=== PATIENT | male | born 1995 | race Caucasian/White ===

== ENCOUNTER 2019-05-21 18:08 | Emergency (ER) | payer SELFPAY ==
[2019-05-21 18:12] VITALS: BP 126/86; PULSE 92; RESP 17; TEMP 36.8; O2SAT 100; BMI 22.9
--- NOTE | 2019-05-21 18:21 | XRR_ITS ---
PROCEDURE INFORMATION: Exam: XR Right Hand Exam date and time: 05/21/2019 6:44 PM Age: 23 years old Clinical indication: Injury or trauma; Fall; Initial encounter; Blunt trauma (contusions or hematomas; Hand; Right; Additional info: Injury/fall, RT hand/wrist pain TECHNIQUE: Imaging protocol: XR Right hand. Views: Frontal, lateral, and oblique views. COMPARISON: No relevant prior studies available. FINDINGS: Bones/joints: Intra-articular fracture of the base of the 5th metacarpal extending from the lateral metaphysis into the central epiphyseal articular surface, there is approximately 1.3 mm posterior displacement of the distal segment and apex posterior angulation. Nondisplaced/minimally displaced fracture of the lateral metaphysis of the 4th metacarpal, likely also extending into the proximal dorsal articular surface. The radiocarpal, intercarpal and carpometacarpal alignment is unremarkable. Soft tissues: Moderate dorsal swelling. XR/XR hand RT min 3V* [id number] IMPRESSION: 1. Nondisplaced/minimally displaced fracture of the lateral metaphysis of the 4th metacarpal, likely also extending into the proximal dorsal articular surface. 2. Intra-articular fractures of the 4th and 5th metacarpals.
--- NOTE | 2019-05-21 18:21 | XRR_ITS ---
PROCEDURE INFORMATION: Exam: XR Right Wrist Exam date and time: 05/21/2019 6:44 PM Age: 23 years old Clinical indication: Injury or trauma; Fall; Initial encounter; Blunt trauma (contusions or hematomas; Wrist; Right; Additional info: Injury/fall, RT wrist/hand pain TECHNIQUE: Imaging protocol: XR Right wrist. Views: Frontal, lateral, and oblique views. COMPARISON: No relevant prior studies available. FINDINGS: Bones/joints: Intra-articular fracture of the base of the 5th metacarpal extending from the lateral metaphysis into the central epiphyseal articular surface, there is approximately 1.5 mm posterior displacement of the distal segment and mild anterior angulation (distal segment) on the lateral image. The radiocarpal, intercarpal and carpometacarpal alignment is unremarkable. Soft tissues: Moderate dorsal swelling. No ectopic gas or foreign body identified. XR/XR wrist RT min 3V* [id number] IMPRESSION: Intra-articular fracture 5th metacarpal.
--- NOTE | 2019-05-21 18:22 | ED_ITS ---
Entered by Queta Lee, acting as scribe for Malena Prabhakar MD HPI - Extremity Problem General: Chief complaint: Extremity Injury, Upper Stated complaint: right hand pain/fall Time Seen by Provider: 05/21/19 18:19 History of Present Illness: HPI Narrative: 23 yo male presents with right wrist injury. pt states that he fell about 4 hours ago and he has pain. Rates his pain a 7 out of 10. MD Complaint: extremity pain Onset (ago): hour(s) (4) Pain Consistency: constant Location: right and upper extremity Quality: sharp Relieving factors: nothing Exacerbating factors: nothing Associated symptoms: Deny chest pain, fever(s) or rash Review of Systems Const: Denies: fever, chills, body aches or change in appetite Eyes: Denies: blurry vision or eye discomfort ENMT: Denies: throat pain or dental pain Card: Denies: chest pain Resp: Denies: shortness of breath GI: Denies: abdominal pain, nausea, vomiting or diarrhea : Denies: painful urination Musc: Reports: joint pain; Denies: neck pain or back pain Skin/Breast: Denies: rash Neuro: Denies: headache Psych: Denies: depression Jose/Lymph: Denies: easy bruising All/Imm: Denies: hives PFSH ED PFSH: Statuses (acute, chronic, etc) shown below reflect problem list status as previously entered and may not be historically accurate Social History Smoking and tobacco status: current every day smoker Physical Exam Const: COMMON NORMALS: no apparent distress, oriented x3 and healthy appearing HENMT: COMMON NORMALS: normocephalic and head/scalp atraumatic HEAD & SCALP: normocephalic and atraumatic Eye: COMMON NORMALS: PERRL and EOMs intact bilaterally PUPIL: Yes PERRL Neck/C-Spine: COMMON NORMALS: full ROM and supple Chest: COMMONS NORMALS: inspection of chest normal and palpation of chest normal Resp: COMMON NORMALS: normal respiratory effort, no retractions, no use of accessory muscles and clear to auscultation bilaterally AUSCULTATION: clear to auscultation bilaterally Cardio: COMMON NORMALS: regular rate, regular rhythm and no murmurs RATE: regular rate RHYTHM: regular rhythm GI: COMMON NORMALS: normal to inspection, nondistended, normoactive bowel sounds, soft to palpation, non-tender and no masses PALPATION: Yes soft Extremity: COMMON NORMALS: normal to inspection and full ROM NARRATIVE EXTREMITY EXAM: tenderness over right lateral hand Neuro: COMMON NORMALS: oriented x3, moves all extremities and no focal motor deficits Psych: COMMON NORMALS: mental status grossly normal, thought process normal and cooperative THOUGHT PROCESS: normal thought process Skin: COMMON NORMALS: no rashes or lesions noted and no wounds GENERAL SKIN EXAM: no rashes or lesions noted Course Vital Signs: Vital signs: Vital Signs Temperature 98.3 F 05/21/19 18:35 Pulse Rate 85 05/21/19 18:35 Respiratory Rate 16 05/21/19 18:35 Blood Pressure 114/74 05/21/19 18:35 Pulse Oximetry 98 05/21/19 18:35 MDM - Extremity (Nontraumatic) MDM Narrative: Medical decision making narrative: Patient presents here with an fracture from a fall. Patient's x-ray here shows a hand fracture. Patient placed in a splint and is to follow-up with primary care doctor in 3 to 5 days return if worsening. Discharge Plan Discharge Patient Disposition: Home, Self-Care Clinical Impression: Boxer's fracture Qualifiers: Encounter type: initial encounter Fracture type: closed Qualified Code(s): S62.339A - Displaced fracture of neck of unspecified metacarpal bone, initial encounter for closed fracture Condition: Stable Prescriptions: [place] 5-325 mg tablet 1 tab PO Q6H PRN (Reason: pain) Qty: 14 RF: 0 No Action No Known Home Medications RF: 0 Discharge Orders: Discharge Order (Routine); Ordered 05/21/19 Ordered By: Malena Prabhakar Referrals: Destinee Swartz MD [Primary Care Provider] - Estella Klein MD [Physician] - 4-7 days Discharge Diet: Advance as tolerated Discharge Activity: Resume usual activity Patient Instructions: Boxer Fracture (ED) Coding Level of Care Code ED Accounting Representative for Chg Fwd Exam Problem Focused The documentation recorded by the Jesus goldstein Kialy, accurately reflects the service I personally performed and the decisions made by Vanna gann Korby, MD May 21, 2019 18:08
[2019-05-21 18:35] VITALS: BP 114/74; PULSE 85; RESP 16; TEMP 36.8; O2SAT 98
[2019-05-21] MEDS: HYDROcodone-acetaminophen 7.5-325 mg Tablet 1 TAB PO (19:00)
[2019-05-21 19:28] VITALS: BP 112/76; PULSE 80; RESP 16; TEMP 36.7; O2SAT 99
--- NOTE | 2019-05-23 09:32 | DCPLANNER ---
software engineering associate manager had message to schedule a follow up appointment for patient with ortho. software engineering associate manager called the ortho clinic, spoke with Jacey, gave clinic patients information. software engineering associate manager was told that patients information would be printed and reviewed. Clinic will call porter sample case and patient with appointment information.
== END 2019-05-21 19:29 | disposition home or self-care (01) ==
PROVIDERS: Emergency Provider Emergency Medicine; Family Provider Family Medicine; PCP Family Medicine
DX: S62.304A Unspecified fracture of fourth metacarpal bone, right hand, initial encounter for closed fracture (principal); S62.306A Unspecified fracture of fifth metacarpal bone, right hand, initial encounter for closed fracture; W19.XXXA Unspecified fall, initial encounter; F17.200 Nicotine dependence, unspecified, uncomplicated
CPT/HCPCS: 29125; 73110; 73130; 99281; 99283

== ENCOUNTER 2019-05-28 10:56 | Outpatient (CLI) | payer SELFPAY | END 2019-05-28 10:57 | disposition home or self-care (01) | LOC: SPT 10:57 | PROVIDERS: Family Provider Family Medicine; PCP Family Medicine; Visit Provider Orthopaedic Surgery | DX: Z46.89 Encounter for fitting and adjustment of other specified devices (principal) | CPT/HCPCS: L3807 ==

== ENCOUNTER 2019-05-29 10:40 | Day surgery (SDC) | payer SELFPAY ==
[2019-05-28 14:43] VITALS: BMI 23.6
[2019-05-29] VITALS (11 sets, daily range): BP systolic 127–169; BP diastolic 75–111; PULSE 74–90; RESP 18–25; TEMP 36.8–37.2; O2SAT 93–99
--- NOTE | 2019-05-29 | SCC_ITS ---
Procedure Done: Open?internal fixation right small finger metacarpal base fracture with plate and screws 23.2 seconds of fluoroscopic guidance, for a cumulative dose of 1.29 mGy, was provided to Dr. Koroma by the radiology department. C-arm images of the RIGHT finger were saved for the patient's permanent record. [facility]
--- NOTE | 2019-05-29 11:10 | ANES.PREANE2 ---
Pre-Anesthetic Assessment Pre-Anesthetic Assessment: Height/Weight: Height 1.78 m Weight 74.843 kg Temp Pulse Resp BP Pulse Ox 98.2 F 75 18 127/75 95 05/29/19 10:51 05/29/19 10:51 05/29/19 10:51 05/29/19 10:51 05/29/19 10:51 Preop Diagnosis: Closed, displaced fracture right small finger metacarpal Proposed Procedure: Operation Date: 05/29/19 12:00 Proposed Procedures p ORIF Rig[place] Fifth Metacarpal 26577 S62.316A(Right) - Valentino Koroma DO Last intake: Intake Last Liquid Date 05/28/19 Last Liquid Time 22:00 Last Solid Date 05/28/19 Last Solid Time 22:00 Social: Social History: Tobacco and No alcohol Exam: Pre-Anes Outpt Exam: alert, oriented x 3, clear to auscultation bilaterally and regular rate & rhythm Airway: Submandibular: WNL Cervical ROM: WNL MP: 1 Dentition: Other (teeth ok) History/ROS: No significant history except as noted Pulmonary: Pulmonary: None reported CV/HEM: CV/HEM: None reported : : None reported Hepatic: Hepatic: None reported GI: Comments: h/o pancreatitis Metabolic: Metabolic: None reported Musc/skel: Musc/skel: None reported Neuropsych: Neuropsych: None reported Anesthetic Plan: ASA status: 2 Anesthesia: Anesthesia Evaluation and General Risk of > 500 ml blood loss (7ml/kg in children): No PFSH Anesthesia PFSH: Medical History Fracture of metacarpal base of right hand, closed Fracture of metacarpal shaft, closed Social History Smoking and tobacco status: current every day smoker Data Anesthesia Cardiac Studies: No Data to Display
[2019-05-29] MEDS: sodium chloride 0.9% 1,000 ML 30 ML IV (11:15)
--- NOTE | 2019-05-29 12:56 | W.PM.OPSUD ---
Surgery/Procedure H&P Update DATE OF PROCEDURE: May 29, 2019 DATE H&P PERFORMED: 05/28/19 H&P UPDATE INFORMATION: I have reviewed H&P completed within last 30 days, I have examined patient prior to procedure, No changes to prior documentation and H&[place] in [facility] [place] date indicated PREOP DIAGNOSIS: Closed, displaced fracture right small finger metacarpal PRIMARY INDICATION FOR PROCEDURE: displaced intra-articular fracture PLANNED PROCEDURE: Operation Date: 05/29/19 12:00 Proposed Procedures p ORIF Rig Fifth Metacarpal 01724 S62.316A(Right) - Valentino Koroma DO Related Problem List Diagnoses (1) Fracture of metacarpal base of right hand, closed: Qualifiers: Encounter type: initial encounter Metacarpal bone: fifth Fracture alignment: displaced Qualified Code(s): S62.316A - Displaced fracture of base of fifth metacarpal bone, right hand, initial encounter for closed fracture
--- NOTE | 2019-05-29 12:58 | P.OP_ITS ---
Operative Report Date of procedure: May 29, 2019 Pre-op Diagnosis: Closed, displaced intra-articular fracture right small finger metacarpal ba Pre-op Diagnosis: Closed, displaced intra-articular fracture right small finger metacarpal base Post-op diagnosis: same Procedure Done: Open?internal fixation right small finger metacarpal base fracture with plate and screws Implants: L-shaped 6-hole plate and 5 screws 2 locking and 3 nonlocking Specimens removed/disposition: Not applicable Pathology: none sent Surgeon: Valentino Koroma Anesthesia: General Estimated blood loss (mL): 10 Tourniquet time (min): 55 Tourniquet time: 250 mmHg pressure Complications: No apparent complications Findings: Ndzul-[id number] fracture right small finger metacarpal base. Patient with known nondisplaced largely transverse fracture proximal shaft of the right ring finger metacarpal Condition: stable Disposition: PACU Brief History: 23-year-old white male who punched a wall approximately a week ago. He was seen in the emergency room initially no fractures were seen follow- up study shows transverse fracture of the shaft of the ring finger metacarpal that is nondisplaced and an intra-articular oblique fracture of the right small finger metacarpal base. Discussed nonoperative treatment of the ring finger fracture but operative treatment of the small finger fracture due to the displaced intra-articular nature of the fracture. Risk of surgery include are not limited to loss reduction potential pain at the carpal metacarpal articulati on. Hardware complication such as loosening failure fracture to heal nerve/blood vessel/injury blood clots, heart attack, stroke risk up to including . All questions answered patient agreeable to proceed with surgery. Procedure: 1.5 g of Zinacef Patient identified. Surgical site was signed. Surgical permit was signed. Patient received 1.5 g of Zinacef for surgical prophylaxis intravenously. He was taking the operating room. His placed supine on the operating room table. He was placed under general anesthesia without difficulty. A tourniquet was placed about the upper aspect of the right upper extremity. Right upper extremity is in sterilely prepped and draped usual fashion. A timeout was performed. The operative limb was exsanguinated using Esmarch bandage. The tourniquet was inflated to 250 mmHg pressure. Incision was made over the dorsum of the distal shaft of the right small finger metacarpal and coursed obliquely over the carpus of the left wrist. Full-thickness skin flaps were made. Crossing veins were coagulated electrocautery. We identified the underlying extensor tendons to the left small finger. They were retracted. Using a second knife we incised the periosteum over the small finger metacarpal. We expose the joint capsule over the carpometacarpal articulation of the right small finger. No loose bodies were noted within the joint. Soft tissue was removed from the fracture site at the base of the right small finger. With 5 pounds of traction placed through a sterile finger traps. The fracture fragment was manipulated and then pinned using a provisional K wire. An L-shaped plate and screws was then applied using cortical screws in the shaft and 2 locking screws at the base. The provisional K wire was removed. Fluoroscopic imaging was performed which showed satisfactory reduction of the fracture with no apparent complications from hardware insertion. The wound was irrigated with Betadine- containing saline solution and antibiotic containing saline solution. Closure was performed in layers with 4-0 nylon on skin. The incision was injected with 10 mL of a one-to-one mixture 1% lidocaine half percent bupivacaine without epinephrine. Antibiotic was applied followed by sterile dressings and an ulnar gutter plaster splint with an Mark overwrap. The tourniquet was deflated during application of dressings. The patient was aroused from general anesthesia. He was taken to recovery room. He tolerated surgery well. All counts are correct.
[2019-05-29] MEDS: cefUROXime 1,500 MG in sodium chloride 0.9% (plus) 50 ML 100 MG IV (13:05)
[2019-05-29] MEDS: ondansetron 2 mg/ML SDV 2 mL 4 MG IVP ×2 (13:05→15:09)
--- NOTE | 2019-05-29 14:08 | XR_ITS ---
WS: [id number] XR finger RT min 2V 21684 REASON FOR EXAM: OR PICS FINDINGS: The fracture of the base of the fifth metacarpal is seen in immobilized with a metal plate and 4 screws the alignment is satisfactory. XR/XR finger RT min 2V 10008 IMPRESSION: Satisfactory alignment internal fixation of a fracture of the base of the fifth metacarpal.
[2019-05-29] MEDS: neomycin-poly-bacitracin oint 28 gm 1 APPLIC TOPICAL (14:13)
[2019-05-29] MEDS: lidocaine 1% INJ 20 mL SUBCUT (14:14)
--- NOTE | 2019-05-29 14:26 | SUR.PHASEI ---
1425 PATIENT TO PACU AT THIS TIME. RR EVEN AND UNLABORED. PT NOTED TO BE RESTING WITH EYES CLOSED, NO DISTRESS NOTED. DRESSING INTACT TO RIGHT HAND, CDI. PULSE PRESENT.
[2019-05-29] MEDS: fentaNYL 50 mcg/mL INJ 2mL IVP (14:35)
--- NOTE | 2019-05-29 15:04 | SUR.PHASEI ---
1501 PATIENT TO OPS AT THIS TIME. RR EVEN AND UNLABORED. NO DISTRESS. DRESSING DRY AND INTACT TO RIGHT HAND, RIGHT RADIAL PULSE PRESENT AND STRONG.
[2019-05-29] MEDS: HYDROcodone-acetaminophen 5-325 mg Tablet 1 TAB PO (15:27)
== END 2019-05-29 16:01 | disposition home or self-care (01) ==
PROVIDERS: Family Provider Family Medicine; PCP Family Medicine; Visit Provider Orthopaedic Surgery
PROC: (CPT 26615; principal; 2019-05-29 12:00)
DX: S62.316A Displaced fracture of base of fifth metacarpal bone, right hand, initial encounter for closed fracture (principal); W22.8XXA Striking against or struck by other objects, initial encounter; F17.210 Nicotine dependence, cigarettes, uncomplicated
CPT/HCPCS: 26615; 12345; 73140; 76000; C1713; J0697; J1580; J2001; J2250; J2405; J2704; J3010; J3490; J7030

== ENCOUNTER → 2019-06-11 13:50 | Outpatient (BNVA) | payer SELFPAY | PROVIDERS: Family Provider Family Medicine; PCP Family Medicine; Visit Provider Orthopaedic Surgery | DX: Z48.89 Encounter for other specified surgical aftercare (principal); Z98.890 Other specified postprocedural states; S62.306A Unspecified fracture of fifth metacarpal bone, right hand, initial encounter for closed fracture; S62.304A Unspecified fracture of fourth metacarpal bone, right hand, initial encounter for closed fracture; X58.XXXA Exposure to other specified factors, initial encounter | CPT/HCPCS: 73130 ==

== ENCOUNTER 2019-06-26 00:43 | Emergency (ER) | payer SELFPAY ==
[2019-06-26 00:54] VITALS: BMI 23.6
[2019-06-26 00:58] VITALS: BP 145/91; PULSE 102; RESP 18; TEMP 37.6; O2SAT 96
--- NOTE | 2019-06-26 01:00 | W.ED.GENADLT ---
HPI - General Adult General: Chief complaint: General Medical Stated complaint: HEMORRHOID Time Seen by Provider: 06/26/19 00:57 Source: patient Mode of arrival: ambulatory Limitations: no limitations History of Present Illness: HPI narrative: Patient is a 23-year-old male who presents to ED today with complaints of a hemorrhoid over the past 2 to 3 days. Patient states he believes he has a history of hemorrhoids but they have always seem to go away on their own and have never been quite this painful. Patient denies history of constipation or straining with his stools. He states he normally has diarrhea due to chronic pancreatitis. He recently was taking pain medications for a hand fracture that required ORIF however is not taking these any longer. Denies blood in his stool. Relieving factors: none Exacerbating factors: other (bowel movements ) Associated symptoms: Reports no associated symptoms; Deny nausea or vomiting Treatments prior to arrival: none Review of Systems GI: Reports: diarrhea (chronic from his chronic pancreatitis ) and painful bowel movements; Denies: abdominal pain, nausea, vomiting, change in stool character, blood in stool, black tarry stool, mucus in stool, white/light colored stool or fatty stool PFS ED PFSH: Social History Smoking and tobacco status: current every day smoker Physical Exam Const: COMMON NORMALS: no apparent distress, average body habitus, oriented x3, no limitations, healthy appearing, alert and well nourished GI: COMMON NORMALS: normal to inspection, nondistended, normoactive bowel sounds, soft to palpation, non-tender, no hepatosplenomegaly and no masses PALPATION: Yes soft and Yes no hepatosplenomegaly RECTAL EXAM: Yes hemorrhoids (pt has one 1cm external non-thrombosed hemorrhoid to R anal verge) Neuro: COMMON NORMALS: oriented x3 SENSORIUM/ORIENTATION: Yes alert Course Vital Signs: Vital signs: Vital Signs Temperature 99.6 F 06/26/19 00:58 Pulse Rate 102 H 06/26/19 00:58 Respiratory Rate 18 06/26/19 00:58 Blood Pressure 145/91 06/26/19 00:58 Pulse Oximetry 96 06/26/19 00:58 Discharge Plan Discharge Patient Disposition: Home, Self-Care Clinical Impression: External hemorrhoid Condition: Stable Prescriptions: New Preparation H Maximum Strength 0.25-1 % cream 1 applic NC BID PRN (Reason: hemorrhoids) Qty: 26 RF: 0 Anusol-HC 25 mg suppository 25 mg NC Q12H 12 Days Qty: 24 RF: 0 No Action oxycodone-acetaminophen 5-325 mg tablet 1 tab PO Q4H PRN (Reason: Pain, Severe) Qty: 30 RF: 0 [place] 5-325 mg tablet 1 tab PO Q6H PRN (Reason: Pain, Moderate) Qty: 14 RF: 0 Discharge Orders: Discharge Order (Routine); Ordered 06/26/19 Ordered By: Isamar Malloy Referrals: Destinee Swartz MD [Primary Care Provider] - Activity Restrictions/Additional Instructions: Please followup with primary care if no relief over the next week. Discharge Date/Time: 06/26/19 01:08 Coding Level of Care Code ED Senior Systems Administrator for Last Turner
== END 2019-06-26 01:08 | disposition home or self-care (01) ==
LOC: ER 01:05
PROVIDERS: Emergency Provider Physician Assistant; Family Provider Family Medicine; PCP Family Medicine
DX: K64.4 Residual hemorrhoidal skin tags (principal); F17.200 Nicotine dependence, unspecified, uncomplicated
CPT/HCPCS: 12345; 99281; 99282

== ENCOUNTER 2019-10-16 09:25 | Observation (INO) | payer SELFPAY ==
[2019-10-16] VITALS (10 sets, daily range): BP systolic 125–152; BP diastolic 68–92; PULSE 55–78; RESP 16–18; TEMP 36.7; O2SAT 97–99; BMI 23.7
[2019-10-16 10:27] LABS: Add Urine Microscopic? NO
[2019-10-16 10:38] LABS: Urine Appearance Clear (CLEAR); Urine Color Straw (Yellow)
[2019-10-16 10:39] LABS: Bilirubin Urine Neg (NEGATIVE); Blood Urine Neg (Negative); Glucose Urine UA Norm (Normal); Ketones Urine Negative (Negative); Leukocyte Esterase Urine Negative (Negative); Nitrate Urine Negative (Negative); Protein Urine Neg (Negative); Specific Gravity, Urine 1.005 (1.005-1.030); Urobilinogen Urine Norm (Negative)
[2019-10-16 10:41] LABS: Basophils % 0.3 %; Eosinophils # 0.3 10^3/uL (0.0-0.8); Eosinophils % 2.1 %; Hematocrit 45.5 % (42.0-52.0); Lymphocytes # 1.8 10^3/uL (0.8-4.8); Lymphocytes % 14.7 %; Mean Corpuscular Hemoglobin 30.2 pg (28.0-34.0); Mean Corpuscular Volume 91.7 fL (80-94); Mean Platelet Volume 9.5 fL (7.4-10.4); Monocytes % 7.9 %; Neutrophils # 9.28 10^3/uL (1.8-7.7); Neutrophils % 74.8 %; Nucleated Red Blood Cells % 0 %; Platelet Count 355 10^3/cmm (130-400); Red Blood Count 4.96 10^6/uL (4.1-5.3); Red Cell Distribution Width 11.9 % (12.1-15.1); White Blood Count 12.4 10^3/uL (4.0-10.0)
--- NOTE | 2019-10-16 10:44 | W.ED.ABDPA2 ---
HPI - Abdominal Pain General: Chief Complaint: Abdominal Pain Stated Complaint: ABD PAIN, N/V Time Seen by Provider: 10/16/19 09:34 Source: patient Mode of arrival: ambulatory Limitations: no limitations History of Present Illness: HPI narrative: Patient is a 24-year-old male who presents to ED today with complaints of upper abdominal pain that began this morning around 4 AM. Patient tells me he has a history of pancreatitis that he has intermittently suffered from over the past 3 years. Patient tells me he will often times have mild flares that do not require medical attention however when pain gets this severe he often will seek medical evaluation. Patient reports chronic diarrhea-this is not changed recently. He admits to nausea and vomiting beginning this morning. Patient states his last severe flare was approximately 8 months ago. Patient has no other significant past medical history and currently takes no medications. He denies alcohol use. Patient's PCP is Dr. Swartz. Pertinent past history: other (chronic pancreatitis) Onset (ago): hour(s) Pain Consistency: constant Location: Epigastric Severity: severe Quality: sharp and burning Radiation: back Migration to: no migration Relieving factors: nothing Associated Symptoms: Reports diarrhea (chronic ), nausea and vomiting; Denies chills, coffee ground emesis, dysuria, fever(s), hematochezia, hematemesis and melena Review of Systems Const: Denies: fever(s), chills, body aches, fatigue or malaise Card: Denies: chest pain Resp: Denies: dyspnea GI: Reports: abdominal pain, nausea, vomiting and diarrhea (chronic ); Denies: hematemesis, coffee ground emesis, hematochezia, melena or white/light colored stool : Denies: flank pain, difficulty urinating, dysuria, urinary frequency, urinary urgency or urinary hesitancy Musc: Denies: neck pain, extremity pain, extremity swelling, joint pain or joint swelling Skin/Breast: Denies: rash Neuro: Denies: headache(s) PFS ED PFSH: Medical History (Updated 10/16/19 @ 14:36 by Jose Simms MD) Fracture of metacarpal base of right hand, closed Fracture of metacarpal shaft, closed GERD (gastroesophageal reflux disease) Pancreatitis, chronic Surgical History (Updated 10/16/19 @ 14:33 by Jose Simms MD) Hx laparoscopic cholecystectomy Status post open reduction and internal fixation (ORIF) of fracture Family History (Updated 10/16/19 @ 14:33 by Jose Simms MD) Other Cancer Social History (Updated 10/16/19 @ 14:33 by Jose Simms MD) Smoking and tobacco status: current every day smoker Alcohol intake: never Substance/Drug Use: current Substance/Drug use type: Marijuana Physical Exam Const: COMMON NORMALS: no acute distress, average body habitus, patient oriented x3, no limitations, healthy appearing, alert and well nourished Resp: COMMON NORMALS: normal respiratory effort and clear to auscultation bilaterally AUSCULTATION: clear to auscultation bilaterally Cardio: COMMON NORMALS: regular rate and regular rhythm RATE: regular rate RHYTHM: regular rhythm GI: COMMON NORMALS: Normal to inspection, nondistended, normoactive bowel sounds present, Soft to palpation, No hepatosplenomegaly present and no masses PALPATION: Yes Soft to palpation, Yes Tenderness to palpation present (GI) (upper abdomen ) and Yes No hepatosplenomegaly present Neuro: COMMON NORMALS: patient oriented x3 SENSORIUM/ORIENTATION: Yes alert Skin: COMMON NORMALS: no rashes or lesions noted GENERAL SKIN EXAM: no rashes or lesions noted Course Vital Signs: Vital signs: Vital Signs Temperature 98.0 F 10/16/19 10:01 Pulse Rate 75 10/16/19 12:55 Respiratory Rate 16 10/16/19 11:35 Blood Pressure 136/76 10/16/19 12:55 Pulse Oximetry 97 10/16/19 12:55 MDM - Abdominal Pain MDM Narrative: Medical decision making narrative: Patient has a normal lipase of 29. He has no evidence for pancreatitis on his CT scan. Patient noted to have elevated liver enzymes with a tbili of 1.5, AST at 663, ALT 370. Patient is status post cholecystectomy. Looking at patient's previous lab values he has intermittently had elevated LFTs over the past 2 to 3 years. Patient has had extensive evaluation including ultrasounds, CT scans, MRCP without any definitive diagnosis. He tells me at one point he was seeing a GI specialist in [place] however has not seen them in over a year. Patient tells me he does not feel comfortable going home at this point due to pain and feels if I were to discharge him home with pain medications he would unfortunately have to return. I have spoken to Dr. Eugene and he will speak to hospitalist about possible admission for pain control. Lab Data: Labs: Lab Results 10/16/19 10/16/19 10/16/19 Range/Units 10:18 10:18 10:22 WBC 12.4 H (4.0-10.0) 10^3/ uL RBC 4.96 (4.1-5.3) 10^6/u L Hgb 15.0 (11.7-16.6) g/dL Hct 45.5 (42.0-52.0) % MCV 91.7 (80-94) fL MCH 30.2 (28.0-34.0) pg MCHC 33.0 (30.0-36.0) g/dL RDW 11.9 L (12.1-15.1) % Plt Count 355 (130-400) 10^3/c mm MPV 9.5 (7.4-10.4) fL Neut % (Auto) 74.8 % Lymph % (Auto) 14.7 % [place] % (Auto) 7.9 % Eos % (Auto) 2.1 % Baso % (Auto) 0.3 % Neut # (Auto) 9.28 H (1.8-7.7) 10^3/u L Lymph # (Auto) 1.8 (0.8-4.8) 10^3/u L [place] # (Auto) 1.0 H (0.2-0.9) 10^3/u L Eos # (Auto) 0.3 (0.0-0.8) 10^3/u L Baso # (Auto) 0.0 (0.0-0.1) 10^3/u L Nucleated RBC % (a uto) 0 % Nucleated RBCs # 0.0 /100WBC Sodium (136-145) mmol/L Potassium (3.5-5.1) mmol/L Chloride (98-107) mmol/L Carbon Dioxide (22-29) mmol/L Anion Gap (5-19) BUN (6-20) mg/dL Creatinine (0.7-1.2) mg/dL GFR Calculation (90-130) mL/min Glucose (65-115) mg/dL Calculated Osmolal ity (285-295) mOsm/k g Calcium (8.5-10.5) mg/dL Total Bilirubin (0.15-1.2) mg/dL AST (0-40) U/L ALT (0-41) U/L Alkaline Phosphata se (40-130) IU/L Total Protein (6.6-8.7) g/dL Albumin (3.5-5.2) g/dL Globulin (1.3-4.6) g/dL Lipase (13-60) U/L Urine Color Straw (Yellow) Urine Appearance Clear (CLEAR) Urine pH 7.0 (5-7) Ur Specific Gravit y 1.005 (1.005-1.030) Urine Protein Neg (Negative) Urine Glucose (UA) Norm (Normal) Urine Ketones Negative (Negative) Urine Blood Neg (Negative) Urine Nitrate Negative (Negative) Urine Bilirubin Neg (NEGATIVE) Urine Urobilinogen Norm (Negative) mg/dL Ur Leukocyte Molly ase Negative (Negative) Urine Opiates Scre en Negative (Negative) ng/mL Ur Barbiturates Sc reen Negative (Negative) ng/mL Ur Phencyclidine S crn Negative (Negative) ng/mL Ur Amphetamines Sc reen Negative (Negative) ng/mL U Benzodiazepines Scrn Negative (Negative) ng/mL Urine Cocaine Scre en Negative (Negative) ng/mL U Marijuana (THC) Screen Positive H (Negative) ng/mL Hepatitis A IgM Ab (Nonreactive) Hep Bs Antigen (Nonreactive) Hep B Core IgM Ab (Nonreactive) Hepatitis C Antibo dy (Nonreactive) 10/16/19 10/16/19 Range/Units 10:22 10:22 WBC (4.0-10.0) 10^3/ uL RBC (4.1-5.3) 10^6/u L Hgb (11.7-16.6) g/dL Hct (42.0-52.0) % MCV (80-94) fL MCH (28.0-34.0) pg MCHC (30.0-36.0) g/dL RDW (12.1-15.1) % Plt Count (130-400) 10^3/c mm MPV (7.4-10.4) fL Neut % (Auto) % Lymph % (Auto) % [place] % (Auto) % Eos % (Auto) % Baso % (Auto) % Neut # (Auto) (1.8-7.7) 10^3/u L Lymph # (Auto) (0.8-4.8) 10^3/u L [place] # (Auto) (0.2-0.9) 10^3/u L Eos # (Auto) (0.0-0.8) 10^3/u L Baso # (Auto) (0.0-0.1) 10^3/u L Nucleated RBC % (a uto) % Nucleated RBCs # /100WBC Sodium 138 (136-145) mmol/L Potassium 4.2 (3.5-5.1) mmol/L Chloride 99 (98-107) mmol/L Carbon Dioxide 29 (22-29) mmol/L Anion Gap 14.2 (5-19) BUN 9 (6-20) mg/dL Creatinine 0.8 (0.7-1.2) mg/dL GFR Calculation 120.9 (90-130) mL/min Glucose 101 (65-115) mg/dL Calculated Osmolal ity 282 L (285-295) mOsm/k g Calcium 9.9 (8.5-10.5) mg/dL Total Bilirubin 1.5 H (0.15-1.2) mg/dL AST 663 H (0-40) U/L ALT 370 H (0-41) U/L Alkaline Phosphata se 71 (40-130) IU/L Total Protein 8.4 (6.6-8.7) g/dL Albumin 4.8 (3.5-5.2) g/dL Globulin 3.6 (1.3-4.6) g/dL Lipase 29 (13-60) U/L Urine Color (Yellow) Urine Appearance (CLEAR) Urine pH (5-7) Ur Specific Gravit y (1.005-1.030) Urine Protein (Negative) Urine Glucose (UA) (Normal) Urine Ketones (Negative) Urine Blood (Negative) Urine Nitrate (Negative) Urine Bilirubin (NEGATIVE) Urine Urobilinogen (Negative) mg/dL Ur Leukocyte Molly ase (Negative) Urine Opiates Scre en (Negative) ng/mL Ur Barbiturates Sc reen (Negative) ng/mL Ur Phencyclidine S crn (Negative) ng/mL Ur Amphetamines Sc reen (Negative) ng/mL U Benzodiazepines Scrn (Negative) ng/mL Urine Cocaine Scre en (Negative) ng/mL U Marijuana (THC) Screen (Negative) ng/mL Hepatitis A IgM Ab Non-reactive (Nonreactive) Hep Bs Antigen Non-reactive (Nonreactive) Hep B Core IgM Ab Non-reactive (Nonreactive) Hepatitis C Antibo dy Non-reactive (Nonreactive) Discharge Plan Discharge Patient Disposition: Admitted As Inpatient Clinical Impression: Intractable abdominal pain, Elevated LFTs Condition: Stable Coding Level of Care Code ED Group Insurance Special Agent for Last Fwd Exam Detailed
--- NOTE | 2019-10-16 10:49 | CT_ITS ---
WS: [id number] CT ABDOMEN AND PELVIS WITH CONTRAST HISTORY: upper abd pain; hx of pancreatitis TECHNIQUE: Imaging performed of the abdomen and pelvis with IV contrast. Single phase imaging of the abdomen. Coronal and sagittal reformats are submitted. All CT scans at [facility] use at least one of these dose optimization techniques: automated exposure control; mA and/or kV adjustment per patient size (includes targeted exams where dose is matched to clinical indication); or iterativ e reconstruction. IV CONTRAST: Omnipaque 300; 95 mL IV. Oral contrast: No DLP: 630.58 mGy.cm COMPARISON: 01/04/2019 Lower thorax: Lung bases are clear. Heart is normal size. No hiatal hernia. Liver/biliary system: Normal size with no intrahepatic dilatation. Gallbladder: Prior cholecystectomy. There is very mild central duct dilatation which may be physiolog ic and related to the cholecystectomy. There is also mild periportal edema. Pancreas: Normal. Spleen: Normal. Adrenal glands: Normal. Right kidney: Normal. Left kidney: Normal. Aorta: Normal. Lymphadenopathy: None. Free fluid: None. GI tract: Normal appendix. No GI tract obstruction. There is a small amount of increased fluid in the proximal and mid small bowel. No mucosal thickening or wall thickening. Abdominal wall: Unremarkable abdominal wall. No hernia. Pelvis: Normal. Bones: Unremarkable. CT/CT abdomen pelvis w con* [id number] IMPRESSION: 1. No evidence for acute pancreatitis. 2. Prior cholecystectomy. 3. Mild periportal edema and central bile duct dilatation. Slightly improved s cody 01/04/2019. 4. Normal appendix.
[2019-10-16 10:59] LABS: Alanine Aminotransferase 370 U/L (0-41); Albumin Level 4.8 g/dL (3.5-5.2); Alkaline Phosphatase 71 IU/L (40-130); Anion Gap 14.2 (5-19); Aspartate Amino Transferase 663 U/L (0-40); Blood Urea Nitrogen 9 mg/dL (6-20); Calcium 9.9 mg/dL (8.5-10.5); Carbon Dioxide 29 mmol/L (22-29); Chloride 99 mmol/L (98-107); Globulin 3.6 g/dL (1.3-4.6); Glomerular Filtration Rate 120.9 mL/min (90-130); Glucose 101 mg/dL (65-115); Lipase 29 U/L (13-60); Osmolality Calculated 282 mOsm/kg (285-295); Potassium 4.2 mmol/L (3.5-5.1); Sodium 138 mmol/L (136-145); Total Bilirubin 1.5 mg/dL (0.15-1.2); Total Protein 8.4 g/dL (6.6-8.7)
[2019-10-16] MEDS: ondansetron 2 mg/ML SDV 2 mL 4 MG IVP ×3 (11:32→22:15)
[2019-10-16] MEDS: morphine 4 mg/mL SDV 1 mL IVP (11:35)
--- NOTE | 2019-10-16 11:35 | PC.NURSE ---
pt in CT by stretcher with tech
[2019-10-16 12:05] LABS: Hepatitis A Antibody IgM Non-Reactive (Nonreactive); Hepatitis B Core IgM Non-Reactive (Nonreactive); Hepatitis B Surface Antigen Non-Reactive (Nonreactive); Hepatitis C Virus Antibody Non-Reactive (Nonreactive)
[2019-10-16] MEDS: HYDROmorphone 1 mg/mL INJ 1 mL 0.5 MG IVP (12:18)
[2019-10-16] MEDS: iohexol 300 mg/mL 100 mL Btl IV (12:38)
--- NOTE | 2019-10-16 14:29 | P.HP_ITS ---
Providers/Chief Complaint Primary Care Provider: Destinee Swartz MD Chief Complaint: ABD PAIN, N/V History of Present Illness Pura Escalante is a 24 year old male with abdominal discomfort. He reports he has a history of chronic pancreatitis and has abdominal discomfort about twice a week that is fairly minor. Every 6 months or so it will be [facility] and he will need admission. Last admission was here and he spent overnight getting IV fluids and nausea medicine. He reports he was evaluated in [place] several years ago and had an ERCP and had several outpatient visits with a bookmobile librarian. He was told he had chronic pancreatitis at that time. He is not for sure if small bowel biopsy was done to rule out celiac disease. He was put on pancreatic enzymes. He denies any fever. He reports no blood in his stool, black or tarry stools or hematemesis. He believes he vomited perhaps 4 times today. He has had a bowel movement today. He frequently has loose greasy stools. He has not been using his pancreatic enzyme lately. Review of Systems General: Reports: 10 or more systems reviewed and unremarkable except in HPI and below Const: Denies: fever(s) Eyes: Denies: change in vision ENMT: Denies: throat pain Card: Denies: chest pain Resp: Denies: dyspnea GI: Reports: abdominal pain, nausea, vomiting and GI cramping; Denies: hematemesis, coffee ground emesis, hematochezia or melena : Denies: flank pain Musc: Denies: neck pain Skin/Breast: Denies: rash Neuro: Denies: headache(s) Psych: Denies: anxiety Endo: Denies: polyuria Jose/Lymph: Denies: easy bruising All/Imm: Denies: urticaria Medications/Allergies Home Medications Medication Instructions Recorded Confirmed Last Taken Type No Known Home Medications 10/16/19 10/16/19 Unknown History Allergies Allergy/AdvReac Type Severity Reaction Status Date / Time No Known Allergies Allergy Verified 05/29/19 10:49 PFSH Acute PFSH: Medical History (Updated 10/16/19 @ 14:36 by Jose Simms MD) Fracture of metacarpal base of right hand, closed Fracture of metacarpal shaft, closed GERD (gastroesophageal reflux disease) Pancreatitis, chronic Surgical History (Updated 10/16/19 @ 14:33 by Jose Simms MD) Hx laparoscopic cholecystectomy Status post open reduction and internal fixation (ORIF) of fracture Family History (Updated 10/16/19 @ 14:33 by Jose Simms MD) Other Cancer Social History (Updated 10/16/19 @ 14:33 by Jose Simms MD) Smoking and tobacco status: current every day smoker Alcohol intake: never Substance/Drug Use: current Substance/Drug use type: Marijuana Supplemental PFSH Information: Vapes Vitals/I&O/Wt Last Vital Signs Temp 98.0 F 10/16/19 10:01 Pulse 75 10/16/19 12:55 Resp 16 10/16/19 11:35 BP 136/76 10/16/19 12:55 Pulse Ox 97 10/16/19 12:55 Weight last 48 hrs Weight 77.111 kg Physical Exam Narrative: EXAM NARRATIVE: General exam is no apparent distress, anxious appearing HEENT: Pupils equally round. Oropharynx clear. Neck is supple no lymphadenopathy or thyromegaly Cardiovascular regular rate and rhythm without murmur, no S3 or S4 Lungs clear no wheezing or crackles Abdomen is soft. Slight tenderness epigastric area. was deferred Extremities no cyanosis clubbing or edema, cap refill brisk Skin no rash Neuro no focal deficits Data : 10/16/19 10:22 10/16/19 10:22 Other data: Bilirubin 1.5, AST 663, ALT 370, lipase normal at 29, urinalysis negative. Hepatitis panel negative. Abdominal pelvic CT demonstrates no evidence of pancreatitis, prior c holecystectomy, mild periportal edema and central bile duct dilation A&P Assessment and plan (1) Vomiting: Cyclic. Observation status. Cannot rule out the THC use is contributing. IV fluids and rehydration N.p.o. Zofran as needed for nausea Status: Acute (2) Abdominal pain: Epigastric. At this point I think pancreatitis is less likely with no evidence of inflammation on CT and lipase is normal. Certainly could be related to peptic ulcer disease and Protonix will be initiated every 12 hours. He does use anti-inflammatories on occasion which I counseled against their use today. With elevated liver function tests will go ahead and check ESR, CRP, antimitochondrial antibody to look into possibility of autoimmune hepatitis although thought less likely. Liver function tests are better than they were checked on January 05. I discussed with the patient that this would need further outpatient evaluation by GI. He gives a history of chronically greasy stools, and abdominal pain and history of chronic pancreatitis causing the pain. This certainly could be the etiology as well and he certainly may have pancreatic insufficiency. When p.o. is started we will restart his pancreatic enzyme. Status: Acute (3) Transaminitis: See notations above Repeat LFTs in the morning Check TSH Status: Acute Additional A&P Information Mild leukocytosis. No evidence of active infection. Full code Low risk for DVT, no prophylaxis required Attestations Medical Necessity Statement*: Will need less than 2 midnight evaluation of cyclic vomiting. Time Spent in Patient Care: Greater than 35 minutes Coding Level of Care Code Acute Mechanical Systems Design Engineer for Chg Fwd Diagnoses Vomiting R11.10 Abdominal pain R10.9 Transaminitis R74.0
[2019-10-16 14:43] LABS: Amphetamines Screen Urine Negative (Negative); Barbiturates Screen Urine Negative (Negative); Benzodiazepines Screen Urine Negative (Negative); Cocaine Screen Urine Negative (Negative); Opiate Screen Urine Negative (Negative); PCP Screen Urine Negative (Negative); THC Screen Urine Positive (Negative)
[2019-10-16 15:11] LABS: Thyroid Stimulating Hormone 2.24 uIU/mL (0.27-4.20)
[2019-10-16 15:35] LABS: Erythrocyte Sedimentation Rate 11 mm/hr (0-10)
[2019-10-16] MEDS: pantoprazole 40 mg SDV IVP (16:08)
[2019-10-16] MEDS: HYDROmorphone 1 mg/mL INJ 1 mL IVP ×2 (16:09→20:35)
[2019-10-16] MEDS: sodium chloride 0.9% 1,000 ML 150 ML IV ×2 (16:10→23:35)
[2019-10-16] MEDS: nicotine 21 mg Patch 1 PATCH TRANSDERMA (22:44)
[2019-10-17] VITALS (7 sets, daily range): BP systolic 106–134; BP diastolic 62–86; PULSE 48–70; RESP 17–20; TEMP 36.6–36.9; O2SAT 95–99
[2019-10-17] MEDS: HYDROmorphone 1 mg/mL INJ 1 mL IVP ×2 (01:10→06:53)
[2019-10-17] MEDS: pantoprazole 40 mg SDV IVP (02:38)
[2019-10-17] MEDS: ondansetron 2 mg/ML SDV 2 mL 4 MG IVP ×2 (04:16→10:56)
[2019-10-17 05:02] LABS: Basophils % 0.6 %; Eosinophils # 0.4 10^3/uL (0.0-0.8); Eosinophils % 5.7 %; Hematocrit 41.9 % (42.0-52.0); Hemoglobin 13.6 g/dL (11.7-16.6); Lymphocytes # 1.8 10^3/uL (0.8-4.8); Mean Corpuscular HGB Conc 32.5 g/dL (30.0-36.0); Mean Corpuscular Hemoglobin 29.9 pg (28.0-34.0); Mean Corpuscular Volume 92.1 fL (80-94); Mean Platelet Volume 9.6 fL (7.4-10.4); Monocytes # 0.7 10^3/uL (0.2-0.9); Monocytes % 10.1 %; Neutrophils # 4.04 10^3/uL (1.8-7.7); Neutrophils % 57.5 %; Nucleated Red Blood Cells % 0 %; Platelet Count 313 10^3/cmm (130-400); Red Blood Count 4.55 10^6/uL (4.1-5.3); Red Cell Distribution Width 11.9 % (12.1-15.1)
[2019-10-17 05:39] LABS: Albumin Level 4.1 g/dL (3.5-5.2); Alkaline Phosphatase 82 IU/L (40-130); Anion Gap 13.8 (5-19); Blood Urea Nitrogen 6 mg/dL (6-20); Carbon Dioxide 27 mmol/L (22-29); Chloride 102 mmol/L (98-107); Glomerular Filtration Rate 120.9 mL/min (90-130); Glucose 95 mg/dL (65-115); Lipase 29 U/L (13-60); Osmolality Calculated 284 mOsm/kg (285-295); Potassium 3.8 mmol/L (3.5-5.1); Sodium 139 mmol/L (136-145); Total Bilirubin 3.5 mg/dL (0.15-1.2); Total Protein 7.1 g/dL (6.6-8.7)
[2019-10-17 05:54] LABS: Alanine Aminotransferase 996 U/L (0-41)
[2019-10-17 05:56] LABS: Aspartate Amino Transferase 872 U/L (0-40)
[2019-10-17] MEDS: sodium chloride 0.9% 1,000 ML 150 ML IV (06:15)
--- NOTE | 2019-10-17 09:19 | PC.CHAP ---
Pastoral Care Encounter/Spiritual Assessment Type of Contact [] Declined coal deliverer visit [] Patient/Family/Request visit [] Outpatient visit [] Follow-up visit [] Physician referral [] Code/Alert [x] Routine visit [] Staff referral [] Actively dying [] Patient sleeping [] Family support [] [] Out of room [] Palliative care [] [] Receiving care in room [] Pre-surgical visit [] Trauma [] Long length of stay [] ICU visit [] Other: Relational/Emotional Strength [] Patient feels connected with others/family/visitors/staff [] Distress [] Loneliness/isolation [] Abandonment Spirituality of Patient [] Person of Divine [] Attends Jew of their Divine [] Believes in Prayer [] Reads Bible or Shinto materials [] There are Spiritual issues to be addressed Embedded Firmware Developer Interventions [x] Prayer [x Active listening [x Non-anxious presence [x] Spiritual/emotional support [] Crisis/trauma care [] Spiritual counseling [] Bereavement support [] Provided bereavement packet [] Provided Bible/devotional materials [] Provided toy/stuffed animal, coloring book to patient or family member [] Provided Communion [] Anointing/[place] [] Salvation [x] Completed spiritual assessment [] Other: Impact on Illness or Injury [] Angry [] Fearful [] Anxious [] Often cries [] Exhaustion [] Unable to work [] Unable to attend congregation [] Unable to walk/stand [] Unable to read [] Unable to drive [] Unable to eat/drink [] Unable to sleep [] Unable to be with family [] Patient intubated [] Other: Summary Patient resting well Time spent with patient 5 min
--- NOTE | 2019-10-17 10:05 | PM.PN ---
Subjective Subjective: Interval history: Pura reports he has had quite a bit of nausea. Vomiting as well. Abdominal pain feels better currently. Medications: Reviewed: Yes Vitals/I&O/Wt Last Vital Signs Temp 98.0 F 10/17/19 08:00 Pulse 48 L 10/17/19 08:00 Resp 20 H 10/17/19 08:00 BP 126/86 10/17/19 08:00 Pulse Ox 99 10/17/19 08:00 10/16/19 10/17/19 10/17/19 22:59 06:59 14:59 Intake Total 2320 / 2320 1120 / 3440 Output Total 400 / 400 1725 / 2125 1200 / 1200 Balance 1920 / 1920 -605 / 1315 -1200 / -1200 Weight last 48 hrs Weight 77.111 kg Physical Exam Narrative: EXAM NARRATIVE: General exam is no apparent distress Cardiovascular regular rate and rhythm without murmur, no S3 or S4 Lungs clear no wheezing or crackles Abdomen is soft. Slight tenderness epigastric area. Extremities no cyanosis clubbing or edema, cap refill brisk Data : 10/17/19 04:25 10/17/19 04:25 A&P Assessment and plan (1) Vomiting: Cyclic. Still having significant issues. Cannot rule out that the THC use is contributing. Continue IV fluids Change to n.p.o. Zofran as needed for nausea Status: Acute (2) Abdominal pain: Epigastric. At this point I think pancreatitis is less likely with no evidence of inflammation on CT and lipase is normal. Certainly could be related to peptic ulcer disease and Protonix will be initiated every 12 hours. He does use anti-inflammatories on occasion which I counseled against their use today. With elevated liver function tests will go ahead and check ESR, CRP, antimitochondrial antibody to look into possibility of autoimmune hepatitis although thought less likely. Today the antimitochondrial antibody is pending but sedimentation rate is normal. Liver function tests are more elevated. Secondary to continued nausea, plan on repeating these tomorrow. Try to get old records from GI. He gives a history of chronically greasy stools, and abdominal pain and history of chronic pancreatitis causing the pain. This certainly could be the etiology as well and he certainly may have pancreatic insufficiency. When p.o. is started we will restart his pancreatic enzyme. Status: Acute (3) Transaminitis: Repeat liver function tests tomorrow. TSH was checked and normal. Status: Acute Additional A&P Information Mild leukocytosis. No evidence of active infection. Resolved Full code Low risk for DVT, no prophylaxis required Change to regular admission considering worsening liver function tests, persistent nausea. Attestations Medical Necessity Statement*: Needs continued hospitalization secondary to persistence of nausea inability to take p.o. Coding Level of Care Code Acute Squaring Machine Operator for Chg Fwd Diagnoses Vomiting R11.10 Abdominal pain R10.9 Transaminitis R74.0
[2019-10-17 10:37] LABS: C Reactive Protein 3.2 mg/L (0.0-4.9); Gamma Glutamyl Transferase 113 U/L (8-61)
--- NOTE | 2019-10-17 12:23 | PC.RESP ---
Smoking Cessation information sent to patient.
[2019-10-20 14:26] LABS: Anti-Double Strand DNA AB <1 IU/mL; Jo-1 Antibody <1.0 NEG AI (<1.0 NEG); SM/RNP Antibodies <1.0 NEG AI (<1.0 NEG); SS-B/LA IGG <1.0 NEG AI (<1.0 NEG); Scleroderma Ab(Scl-70) Ab <1.0 NEG AI (<1.0 NEG); Ss-A/Ro Igg <1.0 NEG AI (<1.0 NEG)
== END 2019-10-17 13:02 | disposition home or self-care (01) ==
LOC: ER 14:36 → MEDSURG 15:05
PROVIDERS: Admitting Provider Internal Medicine; Emergency Provider Physician Assistant; PCP Family Medicine; Visit Provider Internal Medicine
DX: R11.10 Vomiting, unspecified (principal); R10.13 Epigastric pain; R74.0 Nonspecific elevation of levels of transaminase and lactic acid dehydrogenase [LDH]; F17.210 Nicotine dependence, cigarettes, uncomplicated; Z53.29 Procedure and treatment not carried out because of patient's decision for other reasons
CPT/HCPCS: 12345; 36415; 74177; 80053; 80074; 80306; 81003; 82977; 83516; 83690; 84443; 85025; 85651; 86140; 86225; 86235; 96360; 96361; 96374; 96375; 96376; 99283; 99285; C9113; G0378; J1170; J2270; J2405; J7030; Q9967

== ENCOUNTER 2022-04-06 11:28 | Emergency (ER) | payer SELFPAY ==
--- NOTE | 2022-04-06 12:14 | ECG_ITS ---
[facility] Test Date: 2022-04-06 Pat Name: Pura Escalante Department: Room: Gender: Male Toe Trimmer: : 1995 Requested By: Pierce Ortega Order Number: [id number] Mckay MD: Randolph Gamboa M.D. Measurements Intervals [place] Rate: 80 P: 67 [place]: 110 QRS: 73 QRSD: 81 T: 47 QT: 338 QTc: 392 Interpretive Statements SINUS RHYTHM WITH MARKED SINUS ARRHYTHMIA WITH SHORT [place] INTERVAL Compared to ECG 06/13/2016 22:08:06 Short [place] interval now present Electronically Signed On 04-06-2022 21:11:39 WASH TUB MACHINE OPERATOR by Randolph Gamboa M.D. [id number]
[2022-04-06 12:22] VITALS: BP 147/91; PULSE 80; RESP 17; TEMP 36.8; O2SAT 98; BMI 25.1
[2022-04-06 13:52] VITALS: BP 121/84; PULSE 63; RESP 16; O2SAT 97
--- NOTE | 2022-04-06 17:41 | ED_ITS ---
HPI - Arrhythmia/Palpitations General: Chief Complaint: Arrhythmia/Palpitations Stated Complaint: irregular hr Time Seen by Provider: 04/06/22 17:13 History of Present Illness: Patient comes in with palpitations. States that off-and-on for the past 6 months he will occasionally have heart palpitations. Associates it with some chest pain at the same time. Denies any cardiac histor y. Denies any substance abuse except for marijuana which he uses daily. Patient denies any cold symptoms including no fever, cough, congestion, vomiting, or diarrhea. States he does have a history of chronic pancreatitis. Associated symptoms: Deny anxiety, nausea or vomiting Review of Systems Const: Denies: fever(s) or body aches Eyes: Denies: change in vision or blurry vision ENMT: Denies: throat pain or odynophagia Card: Reports: palpitations; Denies: chest pain Resp: Denies: dyspnea or productive cough GI: Denies: abdominal pain, nausea or vomiting : Denies: flank pain or dysuria Musc: Denies: neck pain or back pain Skin/Breast: Denies: rash or pruritus Neuro: Denies: headache(s) or numbness in extremities Psych: Denies: anxiety or change in appetite Endo: Denies: polyuria or excessive sweating PFSH ED PFSH: Medical History Fracture of metacarpal base of right hand, closed Fracture of metacarpal shaft, closed GERD (gastroesophageal reflux disease) Pancreatitis, chronic Surgical History Hx laparoscopic cholecystectomy Status post open reduction and internal fixation (ORIF) of fracture Family History Other Cancer Social History Smoking and tobacco status: current every day smoker (VAPE) Alcohol intake: never Physical Exam Const: COMMON NORMALS: no acute distress, patient oriented x3, healthy appear ing and alert HENMT: COMMON NORMALS: normocephalic and atraumatic HEAD & SCALP: normocephalic and atraumatic Eye: COMMON NORMALS: Equal, round and reactive pupils present and EOMs intact bilaterally PUPIL: Yes Equal, round and reactive pupils present Neck/C-Spine: COMMON NORMALS: full ROM and supple Resp: COMMON NORMALS: normal respiratory effort, No retractions and No use of accessory muscles Cardio: COMMON NORMALS: regular rate and regular rhythm RATE: regular rate RHYTHM: regular rhythm GI: COMMON NORMALS: Normal to inspection, nondistended, normoactive bowel sounds present, Soft to palpation and non-tender PALPATION: Yes Soft to palpation Back/Pelvis: COMMON NORMALS: thoracic and lumbar spine normal to inspection and no thoracic nor lumbar tenderness Extremity: COMMON NORMALS: normal to inspection and full ROM Neuro: COMMON NORMALS: patient oriented x3 SENSORIUM/ORIENTATION: Yes alert Psych: COMMON NORMALS: mental status grossly normal and cooperative Skin: COMMON NORMALS: no rashes or lesions noted and no wounds GENERAL SKIN EXAM: no rashes or lesions noted Course Vital Signs: Vital signs: Vital Signs Temperature 98.3 F 04/06/22 12:22 Pulse Rate 63 04/06/22 13:52 Respiratory Rate 16 04/06/22 13:52 Blood Pressure 121/84 04/06/22 13:52 Pulse Oximetry 97 04/06/22 13:52 Oxygen Delivery Me thod 04/06/22 13:52 MDM - Arrhythmia/Palpitations Medical Decision Making Patient comes in with palpitations. States that off-and-on for the past 6 months he will occasionally have heart palpitations. Associates it with some chest pain at the same time. Denies any cardiac history. Denies any substance abuse except for marijuana which he uses daily. Physical exam today is unremarkable. Will check EKG, labs, and reassess. On reassessment I talked to the patient about the test results. We will set him up with a primary care physician and a cardiac event monitor. Will discharge home at this time with precautions to return for worsening or changing symptoms. Lab Data 04/06/22 17:45 04/06/22 17:45 Laboratory Results WBC 14.7 10^3/uL (4.0-10.0) H 04/06/22 17:45 RBC 5.12 10^6/uL (4.1-5.3) 04/06/22 17:45 Hgb 15.4 g/dL (11.7-16.6) 04/06/22 17:45 Hct 45.9 % (42.0-52.0) 04/06/22 17:45 MCV 89.6 fl (80-94) 04/06/22 17:45 MCH 30.1 pg (28.0-34.0) 04/06/22 17:45 MCHC 33.6 g/dL (30.0-36.0) 04/06/22 17:45 RDW 11.6 % (12.1-15.1) L 04/06/22 17:45 Plt Count 362 10^3/cmm (130-400) 04/06/22 17:45 MPV 9.3 fL (7.4-10.4) 04/06/22 17:45 Neut % (Auto) 73.1 % 04/06/22 17:45 Lymph % (Auto) 18.6 % 04/06/22 17:45 [place] % (Auto) 5.5 % 04/06/22 17:45 Eos % (Auto) 2.2 % 04/06/22 17:45 Baso % (Auto) 0.3 % 04/06/22 17:45 Neut # (Auto) 10.73 10^3/uL (1.8-7.7) H 04/06/22 17:45 Lymph # (Auto) 2.7 10^3/uL (0.8-4.8) 04/06/22 17:45 [place] # (Auto) 0.8 10^3/uL (0.2-0.9) 04/06/22 17:45 Eos # (Auto) 0.3 10^3/uL (0.0-0.8) 04/06/22 17:45 Baso # (Auto) 0.0 10^3/uL (0.0-0.1) 04/06/22 17:45 Nucleated RBC % (auto) 0 % 04/06/22 17:45 Nucleated RBCs # 0.0 /100WBC 04/06/22 17:45 Sodium 136 mmol/L (136-145) 04/06/22 17:45 Potassium 3.9 mmol/L (3.5-5.1) 04/06/22 17:45 Chloride 99 mmol/L (98-107) 04/06/22 17:45 Carbon Dioxide 28 mmol/L (22-29) 04/06/22 17:45 Anion Gap 12.9 (5-19) 04/06/22 17:45 BUN 8 mg/dL (6-20) 04/06/22 17:45 Creatinine 0.8 mg/dL (0.7-1.2) 04/06/22 17:45 GFR Calculation 118.8 mL/min (90-130) 04/06/22 17:45 Glucose 89 mg/dL (65-115) 04/06/22 17:45 Calculated Osmolality 280 mOsm/kg (285-295) L 04/06/22 17:45 Calcium 10.0 mg/dL (8.5-10.5) 04/06/22 17:45 Total Bilirubin 0.8 mg/dL (0.15-1.2) 04/06/22 17:45 AST 13 U/L (0-40) 04/06/22 17:45 ALT 9 U/L (0-41) 04/06/22 17:45 Alkaline Phosphatase 67 U/L (40-130) 04/06/22 17:45 Troponin T Baseline 6 ng/L (0-15) 04/06/22 17:45 Total Protein 8.0 g/dL (6.6-8.7) 04/06/22 17:45 Albumin 4.5 g/dL (3.5-5.2) 04/06/22 17:45 Globulin 3.5 g/dL (1.3-4.6) 04/06/22 17:45 Discharge Plan Discharge Patient Disposition: Home Clinical Impression: Heart palpitations Condition: Stable Prescriptions: No Action MARIJUANA PO Discharge Orders: Discharge ED (Routine); Ordered 04/06/22 Ordered By: Jesus Espinoza Patient Instructions: Heart Palpitations Coding Level of Care Code ED Chemistry Technician for Chg Fwd Exam Comprehensive
[2022-04-06 17:55] LABS: Basophils % 0.3 %; Eosinophils # 0.3 10^3/uL (0.0-0.8); Eosinophils % 2.2 %; Hematocrit 45.9 % (42.0-52.0); Hemoglobin 15.4 g/dL (11.7-16.6); Lymphocytes # 2.7 10^3/uL (0.8-4.8); Lymphocytes % 18.6 %; Mean Corpuscular HGB Conc 33.6 g/dL (30.0-36.0); Mean Corpuscular Hemoglobin 30.1 pg (28.0-34.0); Mean Corpuscular Volume 89.6 fl (80-94); Mean Platelet Volume 9.3 fL (7.4-10.4); Monocytes # 0.8 10^3/uL (0.2-0.9); Monocytes % 5.5 %; Neutrophils # 10.73 10^3/uL (1.8-7.7); Neutrophils % 73.1 %; Nucleated Red Blood Cells % 0 %; Platelet Count 362 10^3/cmm (130-400); Red Blood Count 5.12 10^6/uL (4.1-5.3); Red Cell Distribution Width 11.6 % (12.1-15.1); White Blood Count 14.7 10^3/uL (4.0-10.0)
--- NOTE | 2022-04-06 17:56 | ECG_ITS ---
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 Measurements Intervals [place] Rate: 80 P: 44 TX: 130 QRS: 65 QRSD: 82 T: 55 QT: 366 QTc: 423 Interpretive Statements SINUS RHYTHM WITH SINUS ARRHYTHMIA Compared to ECG 04/06/2022 12:20:25 Short TX interval no longer present Electronically Signed On 04-06-2022 21:14:44 INFORMATICS SPEC by Randolph Gamboa M.D. [id number]
[2022-04-06 18:18] LABS: Troponin(5th) Baseline 6 ng/L (0-15)
[2022-04-06 18:20] LABS: Alanine Aminotransferase 9 U/L (0-41); Albumin Level 4.5 g/dL (3.5-5.2); Alkaline Phosphatase 67 U/L (40-130); Anion Gap 12.9 (5-19); Aspartate Amino Transferase 13 U/L (0-40); Blood Urea Nitrogen 8 mg/dL (6-20); Carbon Dioxide 28 mmol/L (22-29); Chloride 99 mmol/L (98-107); Globulin 3.5 g/dL (1.3-4.6); Glomerular Filtration Rate 118.8 mL/min (90-130); Glucose 89 mg/dL (65-115); Osmolality Calculated 280 mOsm/kg (285-295); Potassium 3.9 mmol/L (3.5-5.1); Sodium 136 mmol/L (136-145); Total Bilirubin 0.8 mg/dL (0.15-1.2)
[2022-04-06 19:08] VITALS: BP 135/87; PULSE 82; RESP 16; O2SAT 97
--- NOTE | 2022-04-07 12:44 | DCPLANNER ---
Addendum entered by Gladis Castle 04/19/22 14:38: Patient had a follow up appointment scheduled with heart care - patient did attend appointment Patient had a follow up appointment scheduled with Dr. Pedraza at [facility] - this appointment was rescheduled. Addendum entered by Gladis Castle 04/12/22 14:36: Patient has an appointment scheduled for Monday, April 19, 2021 at 10:00 at [facility]. clinic will call patient with appointment information. Addendum entered by Gladis Castle 04/07/22 13:02: Patient called case management director back. welfare centre manager scheduled a follow up appointment for patient for Tuesday, April 12, 2022 at 10:[address] Shah at [facility] to establish care. welfare centre manager gave patient the appointment information. welfare centre manager had message to schedule an event recorder for patient. welfare centre manager faxed signed order to [facility] for this to be scheduled. Clinic will call patient with appointment information. Original Note: welfare centre manager had message to schedule a follow up appointment at [facility] for patient for an event recorder. welfare centre manager also had a message to speak with patient about getting established with a primary care physician. case management director called phone number [phone] unable to speak with patient at this time, a voicemail was left for patient to return renal case manager phone call.
== END 2022-04-06 19:09 | disposition home or self-care (01) ==
PROVIDERS: Emergency Provider Emergency Medicine
DX: R00.2 Palpitations (principal); F17.290 Nicotine dependence, other tobacco product, uncomplicated
CPT/HCPCS: 80053; 84484; 85025; 93005; 99284

== ENCOUNTER → 2022-05-04 14:13 | Outpatient (BNVA) | payer SELFPAY | PROVIDERS: Visit Provider Family Medicine | DX: R00.2 Palpitations (principal) | CPT/HCPCS: 84443; 85025 ==

== ENCOUNTER 2023-11-20 23:05 | Emergency (ER) | payer SELFPAY ==
[2023-11-20 23:17] VITALS: BP 145/88; PULSE 76; RESP 16; TEMP 36.7; O2SAT 98; BMI 23.6
--- NOTE | 2023-11-20 23:25 | W.ED.MALEGU ---
HPI - Male Genitourinary General: Chief complaint: Urogenital-Male Stated complaint: trouble urinating Time Seen by Provider: 11/20/23 23:14 History of Present Illness: 28-year-old healthy male who presents the emergency room with dysuria. He says he has been having increased frequency and some burning with urination. Possibly some discharge. He is unsure whether has a urinary tract infection but also has some concern for a sexually transmitted infection. Having some pain in his pelvic area as well. This is relieved with urination. No fevers. No nausea or vomiting. Related Data Home Medications Medication Instructions Recorded Confirmed MARIJUANA PO 10/26/21 07/13/22 Previous Rx's Medication Instructions Recorded sertraline 50 mg tablet See Rx Instructions .Route 02/05/23 .COMPLEX #30 tabs doxycycline hyclate 100 mg capsule 100 mg PO BID 7 days #14 caps 11/21/23 Allergies Allergy/AdvReac Type Severity Reaction Status Date / Time No Known Allergies Allergy Verified 11/20/23 23:19 Review of Systems Narrative: Constitutional symptoms: Negative except as documented in HPI. Skin symptoms: Negative except as documented in HPI. Eye symptoms: Negative except as documented in HPI. ENMT symptoms: Negative except as documented in HPI. Respiratory symptoms: Negative except as documented in HPI. Cardiovascular symptoms: Negative except as documented in HPI. Gastrointestinal symptoms: Negative except as documented in HPI. Genitourinary symptoms: Negative except as documented in HPI. Musculoskeletal symptoms: Negative except as documented in HPI. Neurologic symptoms: Negative except as documented in HPI. Psychiatric symptoms: Negative except as documented in HPI. Endocrine symptoms: Negative except as documented in HPI. PFSH ED PFSH: Medical History Fracture of metacarpal base of right hand, closed Fracture of metacarpal shaft, closed GERD (gastroesophageal reflux disease) Pancreatitis, chronic Surgical History Hx laparoscopic cholecystectomy Status post open reduction and internal fixation (ORIF) of fracture Family History Other Cancer Social History Smoking and tobacco/nicotine status: current every day tobacco/nicotine user (VAPE) Alcohol intake: never Substance/Drug Use: current Physical Exam Narrative: EXAM NARRATIVE: General: Alert, no acute distress. Skin: warm and dry Head: Normocephalic Neck: Trachea midline Eye: Extraocular movements are intact. Ears, nose, mouth and throat: Oral mucosa moist Respiratory: Respirations are non-labored Musculoskeletal: Normal ROM Neurological: Alert and oriented, No focal neurological deficit observed. Psychiatric: Cooperative, appropriate mood & affect. Course Vital Signs: Vital signs: Vital Signs Temperature 98.0 F 11/20/23 23:17 Pulse Rate 76 11/20/23 23:17 Respiratory Rate 16 11/20/23 23:17 Blood Pressure 145/88 11/20/23 23:17 Pulse Oximetry 98 11/20/23 23:17 Oxygen Delivery Me thod Room Air 11/20/23 23:17 MDM - Male Medical Decision Making Urinalysis shows just a few whites no bacteria no nitrite positive no leukocyte esterase positive Assessment and plan: Empirically treating for UTI/STI. ?1000 mg p.o. azithromycin. IM Rocephin in the emergency room. - Discharged home - Discussed plan with patient. Answered any questions. - Evaluation and treatment of this problem were appropriate in the emergency setting. Lab Data Laboratory Results Urine Color Yellow (Yellow) 11/20/23 23:27 Urine Appearance Clear (CLEAR) 11/20/23 23:27 Urine pH 6.0 (5-7) 11/20/23 23:27 Ur Specific [place] 1.007 (1.005-1.030) 11/20/23 23:27 Urine Protein Negative (Negative) 11/20/23 23:27 Urine Glucose (UA) Negative (Normal) 11/20/23 23:27 Urine Ketones Negative (Negative) 11/20/23 23:27 Urine Blood Negative (Negative) 11/20/23 23:27 Urine Nitrate Negative (Negative) 11/20/23 23:27 Urine Bilirubin Negative (Negative) 11/20/23 23: Urine Urobilinogen 0.2 mg/dL (Negative) 11/20/23 23:27 Ur Leukocyte Esterase Negative (Negative) 11/20/23 23:27 Urine RBC 0-2 /hpf (0-2) 11/20/23 23:27 Urine WBC 0-5 /hpf (0-5) 11/20/23 23:27 Ur Squamous Epith Cells 0-5 /hpf (0-5) 11/20/23 23:27 Amorphous Sediment Not Reportable 11/20/23 23:27 Urine Bacteria None seen /hpf (NONE) 11/20/23 23:27 Hyaline Casts 0-4 /lpf H 11/20/23 23:27 No radiology studies performed this visit Discharge Plan Discharge Patient Disposition: Home Clinical Impression: Urinary tract infection Condition: Stable Prescriptions: New doxycycline hyclate 100 mg capsule 100 mg PO BID 7 Days Qty: 14 0RF No Action MARIJUANA PO sertraline 50 mg tablet See Rx Instructions .ROUTE .COMPLEX Qty: 30 0RF Dose Instruction: TAKE ONE TABLET BY MOUTH DAILY Rx Instructions: TAKE ONE TABLET BY MOUTH DAILY Discharge Orders: Discharge ED (Routine); Ordered 11/21/23 Ordered By: Sheila Frederick Discharge Diet: Usual diet Discharge Activity: Increase activity as tolerated Patient Instructions: Sexually Transmitted Diseases (ED), Male Condom Use (ED) Activity Restrictions/Additional Instructions: Thank you for choosing [facility] for your healthcare needs today. Please realize this is an emergency room and that we are providing you with a medical screening exam and this may not be complete and all inclusive of all the testing and or work up that you may need to determine your ailment or severity of your illness. You have been screened and evaluated and felt safe for discharge. Health conditions do change or evolve sometimes and as such it is important that you follow up with your Primary Doctor to be re checked, 3-5 days is a general good time frame for follow up. 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
[2023-11-20 23:33] LABS: Bilirubin Urine Negative (Negative); Blood Urine Negative (Negative); Glucose Urine UA Negative (Normal); Ketones Urine Negative (Negative); Leukocyte Esterase Urine Negative (Negative); Nitrate Urine Negative (Negative); Protein Urine Negative (Negative); Specific Gravity, Urine 1.007 (1.005-1.030); Urine Appearance Clear (CLEAR); Urine Color Yellow (Yellow); Urobilinogen Urine 0.2 mg/dL (Negative)
[2023-11-20 23:38] LABS: Bacteria Urine None Seen /hpf; Hyaline Casts Urine 0-4 /lpf; RBC Urine 0-2 /hpf (0-2); Squamous Epithelial Cell Urine 0-5 /hpf (0-5); WBC Urine 0-5 /hpf (0-5)
[2023-11-20] MEDS: azithromycin 250 mg Tablet 1000 MG PO (23:40)
[2023-11-20] MEDS: cefTRIAXone 1,000 MG in water for injection-sterile 2.1 ML 1 MG IM (23:42)
[2023-11-21 00:13] VITALS: BP 134/61; PULSE 75; RESP 18; O2SAT 98
[2023-11-22 11:06] LABS: Chlamydia Trachomatis RNA TMA NOT DETECTED (NOT DETECTED); Neisseria Gonorrhoeae RNA, TMA NOT DETECTED (NOT DETECTED)
== END 2023-11-21 00:14 | disposition home or self-care (01) ==
PROVIDERS: Physician Assistant; Emergency Provider Emergency Medicine
DX: N39.0 Urinary tract infection, site not specified (principal); F17.290 Nicotine dependence, other tobacco product, uncomplicated
CPT/HCPCS: 81001; 87491; 87591; 96372; 99284; J0696; Q0144

== ENCOUNTER → 2023-12-21 15:18 | Outpatient (BNVA) | payer SELFPAY | PROVIDERS: Visit Provider Registered Nurse Neonatal Intensive Care | DX: R39.9 Unspecified symptoms and signs involving the genitourinary system (principal); R42 Dizziness and giddiness | CPT/HCPCS: 81000; 87086 ==

== ENCOUNTER 2023-12-25 13:30 | Emergency (ER) | payer SELFPAY ==
[2023-12-25 13:31] VITALS: BP 145/101; PULSE 72; RESP 16; TEMP 36.8; O2SAT 99; BMI 20.6
[2023-12-25 14:06] LABS: Basophils % 0.3 %; Eosinophils # 0.1 10^3/uL (0.0-0.8); Eosinophils % 1.3 %; Hematocrit 47.6 % (37-53); Lymphocytes # 1.8 10^3/uL (0.8-4.8); Lymphocytes % 16.3 %; Mean Corpuscular HGB Conc 33.2 g/dL (30-55); Mean Corpuscular Hemoglobin 30.4 pg (27-33); Mean Corpuscular Volume 91.5 fl (82-101); Mean Platelet Volume 9.2 fL (7.4-10.4); Monocytes # 0.8 10^3/uL (0.2-0.9); Monocytes % 6.9 %; Neutrophils # 8.15 10^3/uL (1.8-7.7); Neutrophils % 74.8 %; Nucleated Red Blood Cells % 0 %; Platelet Count 358 10^3/cmm (157-399); Red Cell Distribution Width 11.9 % (12.1-15.1); White Blood Count 10.89 10^3/uL (3.29-11.43)
[2023-12-25 14:08] VITALS: BP 132/95; PULSE 73; RESP 16; O2SAT 99
[2023-12-25 14:23] LABS: Alanine Aminotransferase 15 U/L (0-41); Albumin Level 4.9 g/dL (3.5-5.2); Alkaline Phosphatase 64 U/L (40-130); Aspartate Amino Transferase 17 U/L (0-40); Blood Urea Nitrogen 9 mg/dL (6-20); Calcium 9.7 mg/dL (8.5-10.5); Carbon Dioxide 27 mmol/L (22-29); Chloride 101 mmol/L (98-107); Creatinine Clr Calc Pharmacy 138.3968; Globulin 3.3 g/dL (1.3-4.6); Glomerular Filtration Rate 116.9 mL/min (90-130); Glucose 77 mg/dL (65-115); Lipase 23 U/L (13-60); Osmolality Calculated 287 mOsm/kg (285-295); Sodium 140 mmol/L (136-145); Total Bilirubin 1.6 mg/dL (0.15-1.2); Total Protein 8.2 g/dL (6.6-8.7)
[2023-12-25 14:26] LABS: Bilirubin Urine Neg (Negative); Blood Urine Neg (Negative); Glucose Urine UA Norm (Normal); Ketones Urine Negative (Negative); Leukocyte Esterase Urine Negative (Negative); Nitrate Urine Negative (Negative); Protein Urine Neg (Negative); Specific Gravity, Urine 1.005 (1.005-1.030); Urine Appearance Clear (CLEAR); Urine Color Yellow (Yellow); Urobilinogen Urine Norm (Negative); pH Urine 6.5 (5-7)
[2023-12-25 14:29] LABS: Amphetamines Screen Urine Negative (Negative); Barbiturates Screen Urine Negative (Negative); Benzodiazepines Screen Urine Negative (Negative); Cocaine Screen Urine Negative (Negative); Opiate Screen Urine Negative (Negative); PCP Screen Urine Negative (Negative); THC Screen Urine Positive (Negative)
--- NOTE | 2023-12-25 14:39 | ED_ITS ---
HPI - Weakness 2 General: Chief complaint: Weakness Stated complaint: lightheaded, losing weight Time Seen by Provider: 12/25/23 13:52 History of Present Illness: 28-year-old man who presents emergency r oom with weakness, abdominal discomfort and says he just does not feel right. He said some numbness and tingling in his fingers. Generalized weakness. No focal deficits. No fevers. Mild nausea. No vomiting. Review of Systems 2 Narrative: Constitutional symptoms: Negative except as documented in HPI. Skin symptoms: Negative except as documented in HPI. Eye symptoms: Negative except as documented in HPI. ENMT symptoms: Negative except as documented in HPI. Respiratory symptoms: Negative except as documented in HPI. Cardiovascular symptoms: Negative except as documented in HPI. Gastrointestinal symptoms: Negative except as documented in HPI. Genitourinary symptoms: Negative except as documented in HPI. Musculoskeletal symptoms: Negative except as documented in HPI. Neurologic symptoms: Negative except as documented in HPI. Psychiatric symptoms: Negative except as documented in HPI. Endocrine symptoms: Negative except as documented in HPI. PFSH ED 2 PFSH: Medical History GERD (gastroesophageal reflux disease) Pancreatitis, chronic Fracture of metacarpal shaft, closed Fracture of metacarpal base of right hand, closed Surgical History Hx laparoscopic cholecystectomy Status post open reduction and internal fixation (ORIF) of fracture Family History Other Cancer Social History Smoking and tobacco/nicotine status: current every day tobacco/nicotine user Alcohol intake: never Substance/Drug Use: current Physical Exam 2 Narrative: EXAM NARRATIVE: General: Alert, no acute distress. Skin: Warm, dry. Head: Normocephalic, atraumatic. Neck: Supple, trachea midline. Eye: Extraocular movements are intact. Ears, nose, mouth and throat: mucosa moist. Cardiovascular: Regular, Normal peripheral perfusion. Respiratory: Lungs are clear to auscultation, respirations are non-labored, breath sounds are equal, Symmetrical chest wall expansion. Gastrointestinal: Soft, Nontender, Non distended Musculoskeletal: Normal ROM, no deformity. Neurological: Alert and oriented, No focal neurological deficit observed. Psychiatric: Cooperative, appropriate mood & affect. Course 2 Vital Signs: Vital signs: Vital Signs Temperature 98.2 F 12/25/23 13:31 Pulse Rate 66 12/25/23 14:49 Respiratory Rate 16 12/25/23 14:49 Blood Pressure 162/90 12/25/23 14:49 Pulse Oximetry 98 12/25/23 14:49 Oxygen Delivery Me thod Room Air 12/25/23 14:49 MDM - Weakness Medical Decision Making Medical decision making: Differential diagnosis for patient presenting with generalized weakness including but not limited to and based on the above HPI, review of systems and physical exam: Sepsis. Dehydration. Renal failure. Electrolyte abnormalities. Anemia. Congestive heart failure. Hypotension. Coronary syndrome. Hepatitis. Cirrhosis. Infections such as pneumonia, urinary tract infection, [place] illness, Cellulitis, Viral infections including influenza and Covid-19. Workup: labwork and lab/exam driven imaging ordered to evaluate, rule in and rule out above pathologies. Lab Review: Laboratory results were reviewed and interpreted by myself the emergency room physician. White count is not elevated normally 10.8. Hemoglobin normal at 15.8. BUN/creatinine are normal 8 and 0.8. Lipase is not elevated. Urinalysis is normal. Drug screen is negative except for marijuana. Respiratory panel is negative I reviewed the patient's medical record. Reexamination: Patient remained stable. No increased work of breathing. No altered mental status. No focal motor deficits. Assessment and plan: Weakness - Discharged home - Discussed plan with patient. Answered any questions. - Evaluation and treatment of this problem were appropriate in the emergency setting. Lab Data 12/25/23 13:59 12/25/23 13:59 Laboratory Results WBC 10.89 10^3/uL (3.29-11.43) 12/25/23 13:59 RBC 5.20 10^6/uL (3.85-5.65) 12/25/23 13:59 Hgb 15.80 g/dL (11.27-16.99) 12/25/23 13:59 Hct 47.6 % (37-53) 12/25/23 13:59 MCV 91.5 fl (82-101) 12/25/23 13:59 MCH 30.4 pg (27-33) 12/25/23 13:59 MCHC 33.2 g/dL (30-55) 12/25/23 13:59 RDW 11.9 % (12.1-15.1) L 12/25/23 13:59 Plt Count 358 10^3/cmm (157-399) 12/25/23 13:59 MPV 9.2 fL (7.4-10.4) 12/25/23 13:59 Neut % (Auto) 74.8 % 12/25/23 13:59 Lymph % (Auto) 16.3 % 12/25/23 13:59 [place] % (Auto) 6.9 % 12/25/23 13:59 Eos % (Auto) 1.3 % 12/25/23 13:59 Baso % (Auto) 0.3 % 12/25/23 13:59 Neut # (Auto) 8.15 10^3/uL (1.8-7.7) H 12/25/23 13:59 Lymph # (Auto) 1.8 10^3/uL (0.8-4.8) 12/25/23 13:59 [place] # (Auto) 0.8 10^3/uL (0.2-0.9) 12/25/23 13:59 Eos # (Auto) 0.1 10^3/uL (0.0-0.8) 12/25/23 13:59 Baso # (Auto) 0.0 10^3/uL (0.0-0.1) 12/25/23 13:59 Nucleated RBC % (auto) 0 % 12/25/23 13:59 Nucleated RBCs # 0.0 /100WBC 12/25/23 13:59 Sodium 140 mmol/L (136-145) 12/25/23 13:59 Potassium 4.0 mmol/L (3.5-5.1) 12/25/23 13:59 Chloride 101 mmol/L (98-107) 12/25/23 13:59 Carbon Dioxide 27 mmol/L (22-29) 12/25/23 13:59 Anion Gap 16.0 (5-19) 12/25/23 13:59 BUN 9 mg/dL (6-20) 12/25/23 13:59 Creatinine 0.8 mg/dL (0.7-1.2) 12/25/23 13:59 GFR Calculation 116.9 mL/min (90-130) 12/25/23 13:59 Glucose 77 mg/dL (65-115) 12/25/23 13:59 Calculated Osmolality 287 mOsm/kg (285-295) 12/25/23 13:59 Lactic Acid 2.0 mmol/L (0.5-2.2) 12/25/23 13:59 Calcium 9.7 mg/dL (8.5-10.5) 12/25/23 13:59 Total Bilirubin 1.6 mg/dL (0.15-1.2) H 12/25/23 13:59 AST 17 U/L (0-40) 12/25/23 13:59 ALT 15 U/L (0-41) 12/25/23 13:59 Alkaline Phosphatase 64 U/L (40-130) 12/25/23 13:59 C-Reactive Protein 3.0 mg/L (0.0-4.9) 12/25/23 13:59 Total Protein 8.2 g/dL (6.6-8.7) 12/25/23 13:59 Albumin 4.9 g/dL (3.5-5.2) 12/25/23 13:59 Globulin 3.3 g/dL (1.3-4.6) 12/25/23 13:59 Lipase 23 U/L (13-60) 12/25/23 13:59 Urine Color Yellow (Yellow) 12/25/23 14:00 Urine Appearance Clear (CLEAR) 12/25/23 14:00 Urine pH 6.5 (5-7) 12/25/23 14:00 Ur Specific [place] 1.005 (1.005-1.030) 12/25/23 14:00 Urine Protein Neg (Negative) 12/25/23 14:00 Urine Glucose (UA) Norm (Normal) 12/25/23 14:00 Urine Ketones Negative (Negative) 12/25/23 14:00 Urine Blood Neg (Negative) 12/25/23 14:00 Urine Nitrate Negative (Negative) 12/25/23 14:00 Urine Bilirubin Neg (Negative) 12/25/23 14:00 Urine Urobilinogen Norm mg/dL (Negative) 12/25/23 14:00 Ur Leukocyte Esterase Negative (Negative) 12/25/23 14:00 Urine RBC None /hpf (0-2) 12/25/23 14:00 Urine WBC None /hpf (0-5) 12/25/23 14:00 Ur Squamous Epith Cells None /hpf (0-5) 12/25/23 14:00 Amorphous Sediment Not Reportable 12/25/23 14:00 Urine Bacteria None /hpf (NONE) 12/25/23 14:00 Urine Opiates Screen Negative ng/mL (Negative) 12/25/23 14:00 Ur Barbiturates Screen Negative ng/mL (Negative) 12/25/23 14:00 Ur Phencyclidine Scrn Negative ng/mL (Negative) 12/25/23 14:00 Ur Amphetamines Screen Negative ng/mL (Negative) 12/25/23 14:00 U Benzodiazepines Scrn Negative ng/mL (Negative) 12/25/23 14:00 Urine Cocaine Screen Negative ng/mL (Negative) 12/25/23 14:00 U Marijuana (THC) Screen Positive ng/mL (Negative) H 12/25/23 14:00 Coronavirus (PCR) Negative (Negative) 12/25/23 14:00 Influenza A (PCR) Negative (Negative) 12/25/23 14:00 Influenza Type B (PCR) Negative (Negative) 12/25/23 14:00 RSV (PCR) Negative (Negative) 12/25/23 14:00 No radiology studies performed this visit Discharge Plan Discharge Patient Disposition: Home Clinical Impression: Weakness Condition: Stable Prescriptions: No Action MARIJUANA 1 ea PO PRN amoxicillin-pot clavulanate 875-125 mg tablet 1 tab PO BID 7 Days Qty: 14 0RF Discharge Orders: Discharge ED (Routine); Ordered 12/25/23 Ordered By: Sheila Frederick Discharge Diet: Usual diet Discharge Activity: Increase activity as tolerated Patient Instructions: Weakness (ED) Activity Restrictions/Additional Instructions: Thank you for choosing [facility] for your healthcare needs today. Please realize this is an emergency room and that we are providing you with a medical screening exam and this may not be complete and all inclusive of all the testing and or work up that you may need to determine your ailment or severity of your illness. You have been screened and evaluated and felt safe for discharge. Health conditions do change or evolve sometimes and as such it is important that you follow up with your Primary Doctor to be re checked, 3-5 days is a general good time frame for follow up. You are always welcome to return to the ED for re assessment if your symptoms are worsening or you have new concerns Coding Level of Care Code ED Sample Checker for Last Fwd Related Data Home Medications Medication Instructions Recorded Confirmed MARIJUANA 1 ea PO PRN 10/26/21 12/25/23 Previous Rx's Medication Instructions Recorded amoxicillin 875 mg-potassium 1 tab PO BID 7 days #14 tabs 12/21/23 clavulanate 125 mg tablet Allergies Allergy/AdvReac Type Severity Reaction Status Date / Time No Known Allergies Allergy Verified 12/21/23 14:41
[2023-12-25 14:49] VITALS: BP 162/90; PULSE 66; RESP 16; O2SAT 98
[2023-12-25 14:57] LABS: Covid PCR NEGATIVE (Negative); Influenza A NEGATIVE (Negative); Influenza B NEGATIVE (Negative); Respiratory Syncytial Virus Ce NEGATIVE (Negative)
[2023-12-25 15:31] VITALS: BP 132/92; PULSE 68; RESP 16; O2SAT 98
== END 2023-12-25 15:33 | disposition home or self-care (01) ==
PROVIDERS: Emergency Provider Emergency Medicine
DX: R53.1 Weakness (principal); Z72.0 Tobacco use
CPT/HCPCS: 0241U; 36415; 80053; 80306; 81001; 83605; 83690; 85025; 86140; 87040; 99283

== ENCOUNTER → 2024-01-01 09:08 | Outpatient (BNVA) | payer SELFPAY | PROVIDERS: Visit Provider Family Medicine | DX: F41.9 Anxiety disorder, unspecified (principal); F32.A Depression, unspecified; R00.2 Palpitations; R63.4 Abnormal weight loss | CPT/HCPCS: 84439; 84443 ==